=== PATIENT | male | born 1980 | race American Indian/Alaskan Native ===

== ENCOUNTER 2021-07-07 10:36 | Outpatient (CLI) | payer OTHER ==
--- NOTE | 2021-07-07 13:32 | Ultrasound Report ---
US soft tissue head and neck INDICATION / CLINICAL INFORMATION: LUMP IN THE NECK. COMPARISON: None available. FINDINGS: Limited grayscale and color Doppler imaging within the left neck areas of concern. There is a small inferior auricular lymph node measuring 5 mm in short axis with normal reniform morp hology and fatty hilum. Within the posterior left neck area of concern, there is a superficial nodule that likely represents a small lymph node measuring 2 mm in short axis. IMPRESSION: 1. Small, shotty lymph nodes within the left neck areas of concern. Scribed by: Sil Segovia RDMS, MARITA, DALJIT Scribed: 07/07/2021 11:11 AM I have reviewed the images, agree with this report, and edited this report as needed. Signer Name: Andrew Sotomayor MD Signed: 07/07/2021 1:28 PM Workstation Name: [id number]
== END 2021-07-07 10:37 | disposition home or self-care (01) ==
LOC: US 10:36
PROVIDERS: ATTEND Internal Medicine
DX: R22.1 Localized swelling, mass and lump, neck (principal)
CPT/HCPCS: 76536